=== PATIENT | female | born 1985 | race Caucasian/White ===

== ENCOUNTER 2018-12-02 22:36 | Emergency (ER) | payer SELFPAY ==
[2018-12-02 23:15] VITALS: BP 148/68
--- NOTE | 2018-12-03 01:35 | ER Document Report ---
ED ENT - General Chief Complaint: Facial Swelling Stated Complaint: RIGHT SIDE OF FACE SWOLLEN Time Seen by Provider: 12/03/18 01:20 Notes: Patient is a 33-year-old female that comes to the emergency department for chief complaint of swelling of the right eyelid and right side of the face. She states that on Thursday (about 4 days ago), she was diagnosed with pinkeye because her eye was very red, she had also been directly exposed to a child that had pinkeye, she states she was prescribed erythromycin ointment was using this, however she states that she is started to have some swelling of the lower eyelid with some redness, she is also had some spreading redness on the right side of the cheek. She denies visual correction use, she denies visual changes. She has had some discharge from the eye. Denies any daily medications. TRAVEL OUTSIDE OF THE [place] IN LAST 30 DAYS: No Past Medical History - General Information source: Patient - Social History Smoking Status: Never Smoker Chew tobacco use (# tins/day): No Drug Abuse: None Lives with: Family Family History: Reviewed & Not Pertinent Patient has suicidal ideation: No Patient has homicidal ideation: No - Medical History Medical History: Negative Renal/ Medical History: Denies: Hx Peritoneal Dialysis - Immunizations Immunizations up to date: Yes Hx Diphtheria, Pertussis, Tetanus Vaccination: Yes Review of Systems - Review of Systems Constitutional: No symptoms reported EENT: See HPI Cardiovascular: No symptoms reported Respiratory: No symptoms reported Gastrointestinal: No symptoms reported Genitourinary: No symptoms reported Female Genitourinary: No symptoms reported Musculoskeletal: No symptoms reported Skin: See HPI Hematologic/Lymphatic: No symptoms reported Neurological/Psychological: No symptoms reported Physical Exam - Vital signs Vitals: Temp Pulse Resp BP Pulse Ox 98.1 F 70 18 148/68 H 100 12/02/18 23:14 12/02/18 23:14 12/02/18 23:14 12/02/18 23:14 12/02/18 23:14 - Notes Notes: GENERAL: Alert, interacts well. No acute distress. HEAD: Normocephalic, atraumatic. EYES: Pupils equal, round, and reactive to light. Extraocular movements intact. Sclera of the right eye is injected. There is some minimal swelling and erythema of the lower eyelid with no fluctuance or induration. The erythema extends to the zygomatic area. No current discharge. No superficial foreign body, no fluorescein uptake, negative Arnoldo sign. No dendrites. ENT: Oral mucosa moist, tongue midline. Oropharynx unremarkable. Airway patent. Nares patent, no nasal septal hematoma, TM's intact. NECK: Full range of motion. Supple. Trachea midline. LUNGS: Clear to auscultation bilaterally, no wheezes, rales, or rhonchi. No respiratory distress. HEART: Regular rate and rhythm. No murmur ABDOMEN: Soft, non-tender. Non-distended. Bowel sounds present in all 4 quadrants. GENITOURINARY: Deferred EXTREMITIES: Moves all 4 extremities spontaneously. No edema, normal radial and dorsalis pedis pulses bilaterally. No cyanosis. BACK: no cervical, thoracic, lumbar midline tenderness. No saddle anesthesia, normal distal neurovascular exam. NEUROLOGICAL: Alert and oriented x3. Normal speech. [cranial nerves II through XII grossly intact]. PSYCH: Normal affect, normal mood. SKIN: Warm, dry, normal turgor. No rashes or lesions noted. Course - Re-evaluation Re-evalutation: Visual acuity is normal. EOMs are normal. Patient has evidence of conjunctivitis on examination, she also has evidence of preseptal cellulitis. No dendrites or concerning findings on fluorescein stain, no concerning findings noted otherwise. Patient does get symptom resolution with tetracaine eyedrops. I discussed with Dr. Norton. Patient will continue erythromycin ointment, be placed on oral antibiotics, she will have follow-up with ophthalmology, and she will return if she worsens in any way. I discussed this in detail with patient. She states satisfaction and agreement with plan. - Vital Signs Vital signs: Temp Pulse Resp BP Pulse Ox 98.1 F 70 18 148/68 H 100 12/02/18 23:14 12/02/18 23:14 12/02/18 23:14 12/02/18 23:14 12/02/18 23:14 Discharge - Discharge Clinical Impression: Right facial pain Conjunctivitis Qualifiers: Conjunctivitis type: acute Acute conjunctivitis type: unspecified Laterality: right Qualified Code(s): H10.31 - Unspecified acute conjunctivitis, right eye Condition: Stable Disposition: HOME, SELF-CARE Additional Instructions: Your evaluation is consistent with a condition called preseptal cellulitis in addition to the conjunctivitis. Take antibiotics as prescribed to completion. Continue erythromycin ointment. Follow-up with the ophthalmology referral listed below. Return if you worsen in any way including increased swelling, spreading redness, fever, loss of vision, severe worsening pain, or any other concerning or worsening symptoms. Prescriptions: Cephalexin Monohydrate [Keflex 500 mg Capsule] 500 mg PO QID #28 capsule Sulfamethoxazole/Trimethoprim [Bactrim Ds Tablet] 1 each PO BID #14 tablet Forms: Return to Work Referrals: TRINH LARA MD [ACTIVE STAFF] - Follow up as needed
[2018-12-03] MEDS ORDERED: TETRACAINE HCL 0.5% OPH SOLN 4 ML OD ONE (01:38)
[2018-12-03] MEDS ORDERED: HYDROCODONE/ACETAMINOPHEN 5-325 MG (6 TAB/ER DISP) PO PRN (02:12)
[2018-12-03] MEDS ORDERED: SULFAMETHOXAZOLE/TRIMETHOPRIM 800-160 MG TABLET PO ONE (02:12)
[2018-12-03] MEDS ORDERED: CEPHALEXIN 500 MG CAPSULE PO ONE (02:12)
== END 2018-12-03 02:45 | disposition home or self-care (01) ==
LOC: ER 22:36
DX: H10.31 Unspecified acute conjunctivitis, right eye (principal); R51 Headache; R22.0 Localized swelling, mass and lump, head
CPT/HCPCS: 99283; J3490